=== PATIENT | male | born 1960 | race Caucasian/White ===

== ENCOUNTER → 2017-10-26 | Outpatient (CLI) | payer BC ==
[~2017-10-26] MED LIST: ASPIRIN325 PO; CARVEDILOL6.25 MG PO; CHANTIX1 MG PO; CIPRO500 MG PO; CLONAZEPAM 0.50.5 M1 PO; COLACE100 MG PO; COREG6.25 MG PO; COZAAR 50 MG TA50 M1 PO; CRESTOR20 MG PO; DULERA 100 MCG/13 GM INH; EFFIENT10 MG PO; FIBER0.52 G1 PO; FLAGYL500 M1 PO; HYDROCODONE-AP1 EAC6 PO; IBUPROFEN 200200 M1; LISINOPRIL10 MG PO; MIRALAX17 GM PO; NITROGLYCERIN0.4 MG SL; PROBIOTIC1 EAC1 PO; SPIRONOLACTONE25 M3 PO
== END ==
LOC: M.LAB 10-24 09:56 → M.CT 12:02
PROVIDERS: Internal Medicine
DX: J90 Pleural effusion, not elsewhere classified (principal); J43.1 Panlobular emphysema; I25.5 Ischemic cardiomyopathy

== ENCOUNTER → 2019-07-14 | Outpatient (CLI) | payer BC | LOC: M.ULTRA 09:27 | DX: R10.9 Unspecified abdominal pain (principal); R07.9 Chest pain, unspecified; I25.10 Atherosclerotic heart disease of native coronary artery without angina pectoris; J43.1 Panlobular emphysema; I10 Essential (primary) hypertension; I25.5 Ischemic cardiomyopathy; E66.09 Other obesity due to excess calories ==